=== PATIENT | female | born 1995 | race Caucasian/White ===

== ENCOUNTER 2017-02-04 16:46 | Inpatient (IN) | payer OTHER ==
[~2017-02-04] VITALS: Ht 170.2 cm; Wt 104.8 kg
[2017-02-04] MEDS ORDERED: fentaNYL-PF 50 mCg/mL 2 mL Inj IVPUSH PRN (16:55)
[2017-02-04] MEDS ORDERED: Oxytocin 30 Units/500 mL LR 30 UNITS in IV Premix 1 EACH IV PRN (16:55)
[2017-02-04] MEDS ORDERED: Hemorrhage Kit, Post Partum XX ONE (16:55)
[2017-02-04] MEDS ORDERED: Lactated Ringer's 1,000 ML IV PRN (16:55)
[2017-02-04] MEDS ORDERED: Oxytocin 10 Unit/mL Inj IM PRN (16:55)
[2017-02-04] MEDS ORDERED: Sodium Chloride LOK Flush 10 mL Syringe IVFLUSH PRN (16:55)
[2017-02-04] MEDS ORDERED: Methylergonovine 0.2 mg/mL Inj IM PRN (16:55)
[2017-02-04] MEDS ORDERED: Ondansetron 2 mg/mL 2 mL Inj IVPUSH PRN ×2 (16:55→17:50)
[2017-02-04] MEDS ORDERED: Carboprost 250 mCg/mL Inj IM PRN (16:55)
[2017-02-04 17:12] LABS: Mean Corpuscular Hemoglobin 27.4 pg (27.0-35.0)
[2017-02-04] MEDS ORDERED: Lactated Ringer's 500 ML IV ONE (17:47)
--- NOTE | 2017-02-04 17:48 | PCM.HPANE ---
Patient Data Surgeon Admitting Provider:Melecio Abdi MD Attending Provider:Melecio Abdi MD Primary Care Physician:Melecio Abdi MD Other Provider: Reason for Visit Term Labor Check TERM LABOR CHECK Ht/WT & BMI Body Mass Index Allergies Coded Allergies: No Known Allergies (Unverified , 02/04/17) Past Anesthesia History Anesthesia History: Denies:: Abnormal Airway, Difficult Intubation Diabetes History Hx Diabetes?: No Medications Hypertension Medication: No Home Meds Incl Beta Javon: No History History of ENT Problems?: No HEENT History: Denies:: Abnormal Airway Cataracts Difficult Intubation Dysphagia Glaucoma Hearing Problem Sinus Problem TMJ Denture Type: None Teeth Condition: Within Normal Limits Hx of Heart Problems?: No Cardiovascular History: Denies:: AICD Abdominal Aortic Aneurism Atrial Fibrillation Cardiac Surgery Chest Pain Congestive Heart Failure Coronary Artery Disease Edema Heart Murmur Hypertension Irregular Heartbeat Pacemaker Peripheral Vascular Rheumatic Fever Thrombophlebitis Valvular Heart Disease Hx of Respiratory Problem?: No Respiratory History: Denies:: Asthma COPD Chest Surgery Cough Dyspnea Emphysema Hemoptysis Oxygen Administration Pneumonia Pulmonary Embolism Tuberculosis Use of C-PAP Machine Use of Inhalers / NEBS Hx Neurologic Problems?: No Neurological History: Denies:: Alzheimer's Disease CVA Dementia Dizziness Headaches Multiple Sclerosis Parkinson's Disease Peripheral Neuropathy Seizures TIA Hx of GI Problems?: No Gastrointestinal History: Denies:: Cirrhosis Diverticulitis Gall Bladder Disease Gastroesphageal Reflux Gastrointestinal Bleeding Heartburn Hepatitis Hiatal Hernia Liver Disease Rectal Bleeding Hx of Problems?: No HX of Peritoneal Dialysis: No Female Hx: Positive for:: Currently Hx Musculoskeletal Problems?: No Hx of Psycho/Social Problems?: No Hx Surgeries?: No Hx Any Other Health Problems?: No Hx Diabetes: No Hx Alcohol Use: NoHx Substance Use: No Smoking Status: Never Smoker Have You Smoked inLast 12 mo: No Stop/Bang Treated for Sleep Apnea?: No Do You Have a CPAP Machine?: No Risk Assessment Category Category 1A: Patient has history of documented sleep apnea, and HAS NOT received any narcotic, sedative or anesthesia administration during this stay. Category 1B: Patient has history of documented sleep apnea, and HAS received any narcotic , sedative or anesthesia administration during this stay Category 2: Patient has SUSPECTED Obstructive Sleep Apnea, and HAS received any narcotic , sedative or anesthesia administration during this stay. Category 3: Patient has SUSPECTED Obstructive Sleep Apnea and HAS NOT received narcotic, sedative or anesthesia administration during this stay. Category 4: Outpatient in Procedural Areas with known sleep apnea or who screen positive for High Risk via the STOP/BANG questionnaire. Exam Exam General Appearance: Mild Distress HEENT/AIRWAY: MP 2 Lungs: Clear to Auscultation, Normal Air Movement Heart: Exam Unremarkable, Regular Rate/Rhythm, No Murmurs/Rubs/Gallops Meds/Labs/Diagnostics Labs Test 02/04/17 17:03 White Blood Count 11.8th/mm3 (3.8-10.1) Red Blood Count 4.53mil/mm3 (3.90-5.20) Hemoglobin 12.4g/dL (12.0-15.6) Hematocrit 37.6% (35.0-46.0) Mean Corpuscular Volume 83.0fL (81-100) Mean Corpuscular Hemoglobin 27.4pg (27.0-35.0) Mean Corpuscular Hemoglobin Concent 33.0% (32.0-37.0) Red Cell Distribution Width 14.7% (12.3-15.4) Platelet Count 194bil/L (150-400) Plan Impression Patient chart reviewed, patient interviewed and anesthestic plan with risks, benefits, and alternatives discussed, and informed consent obtained. NPO per Anesth. Guidelines: Yes ASA Physical Status: ASA1 Normal Healthy Anesthetic Plan: Epidural Bene/Risks/Altern/Consents: Yes HP Complete Prior to Induction: Yes Florencio Alan MD Feb 04, 2017 17:48
[2017-02-04] MEDS ORDERED: Atropine 1 mg/10 mL (Code) Syringe IVPUSH PRN (17:50)
[2017-02-04] MEDS ORDERED: EPHEDrine Sulfate 50 mg/mL Inj IVPUSH PRN (17:50)
[2017-02-04] MEDS: Lactated Ringer's 1,000 ML IV SCH (20:43)
[2017-02-05] MEDS: fentaNYL 2 mCg/mL-Bupiv 0.125% 100 ML EPIDURAL SCH ×2 (00:23→05:31)
[2017-02-05] MEDS ORDERED: Lidocaine 2% 5 mL Urojet Topical Jelly Syringe ONE (02:58)
[2017-02-05] MEDS ORDERED: Lidocaine 2% 5 mL Topical Jelly TOPICAL ONE (03:20)
[2017-02-05] MEDS: Lactated Ringer's 1,000 ML IV SCH ×5 (05:32→23:53)
--- NOTE | 2017-02-05 05:58 | HP ---
[address] [address] HISTORY AND PHYSICAL PATIENT: SHMUEL JACOBO : 1995 MR#: [id number] ADMIT: 02/04/2017 JOB ID: [id number] CHIEF COMPLAINT: Contractions. HISTORY OF PRESENT ILLNESS: This is a 21-year-old obstetrical patient of mine at 41 and 3/7 weeks estimated gestational age who presents complaining of increasing frequency and intensity of contractions over the last 12 hours or so. In the last 2 hours she has been having them about every 3 minutes or so and with increasing intensity. She has been noting that the baby has been moving every day. She denies any significant vaginal discharge. She saw me in clinic early this afternoon and at that time, she was starting to have contractions pretty regularly but at that point, were only about every 5 minutes. Her cervix at that time was about to 2.5 cm, 80% effaced and -3 station. The rest of her exam was unremarkable, and she was given labor precautions. It appeared that she was going into labor, so she was told to have a low threshold for going to the Center which she did and came to the Center a couple of hours later and was found to be 3-4 cm, nearly 100% effaced, still in -3 station, vertex position. The baby's heart tracing was reactive and reassuring, and she was madelyn about every 3 minutes. She was admitted for expectant management. PAST OBSTETRICAL HISTORY: She is a primiparous patient with a due date of January 25, 2017, based on a 13 week ultrasound. Her last menstrual period was in early April and giving an approximate due date of January 14. This was changed to the later due date based on the 13 week ultrasound. The obstetrical history was complicated with a late presentation to care at about 28 weeks. She had been seen once or twice with care earlier at another facility and transferred to us. Her course has otherwise been fairly unremarkable. OBSTETRICAL LABORATORY TESTS: Her blood type is A-positive. She is rubella immune. Serology was nonreactive. She was negative for hepatitis B, hepatitis C and HIV, and her antibody screen. Hematocrit at 15 weeks was 37.4 and at 26 weeks was 36.3. Diabetic screening test at 26 weeks was negative. Her initial Pap was reportedly normal, although I never was able to find the actual report. Her chlamydia and gonorrhea tests were negative. Group B strep checked at 36 weeks was also negative. PAST GYNECOLOGIC HISTORY: Entirely unremarkable. PAST MEDICAL HISTORY: Also totally unremarkable. SURGICAL HISTORY: Negative. FAMILY HISTORY: Significant for maternal aunt and maternal grandmother with diabetes, hypertension with her father, some sort of thyroid disease with her mother, and bipolar disease with paternal grandfather. Otherwise, is noncontributory. ALLERGIES: The patient has no known drug allergies. MEDICATIONS: Currently is taking vitamins. Otherwise, is on no regular medications. SOCIAL HISTORY: The patient lives in [facility] with her of the last five years. The patient is a full-time sales associate cashier and denies any alcohol or drug use. She has never smoked. REVIEW OF SYSTEMS: The patient had a Tdap vaccination in October and declined flu vaccinations. The patient denies any chest pain, palpitations, shortness of breath. No unusual headaches. No blurry vision. Has not really had any swelling in her feet at all until today, and her blood pressure in my office was fine. OBJECTIVE: Well-developed, well-nourished woman in no apparent distress except for with contractions. Her vital signs are normal and unremarkable. Lungs are clear to auscultation bilaterally with good air movement. Heart is regular rate and rhythm. No significant murmurs heard. Abdomen is gravid, otherwise unremarkable with normoactive bowel sounds. Extremities show 1+ edema in her feet and ankles bilaterally, and she is kind of puffy around her face. Cervical exam finds her to be 3-4 cm, 100% effaced as mentioned, at -3 station with a reactive heart tracing. Madelyn every three minutes. ASSESSMENT AND PLAN: Intrauterine , at term, in labor. Will admit the patient to the hospital. She was requesting an epidural, and this was placed with excellent results. Will plan on routine expectant management. I discussed routine expectant management issues and procedures. Also, I discussed potential complications in the usual obstetrical procedures to address them but also the possible need for surgical care if a becomes needed. I also discussed the possible need for assistance with vacuum extraction and the associated potential complications. All of her questions were answered, and she expressed understanding of these issues and is willing to proceed.
[2017-02-05] MEDS ORDERED: Mineral Oil-Heavy 30 mL UDC ONE (06:19)
[2017-02-05] MEDS ORDERED: Carboprost 250 mCg/mL Inj IM PRN (07:55)
[2017-02-05] MEDS ORDERED: LANOlin HPA 7 Gm Ointment TOPICAL PRN (07:55)
[2017-02-05] MEDS ORDERED: Methylergonovine 0.2 mg/mL Inj IM PRN (07:55)
[2017-02-05] MEDS ORDERED: Benzocaine (Dermoplast) 20% 60 Gm Spray TOPICAL PRN (07:55)
[2017-02-05] MEDS ORDERED: Oxytocin 10 Unit/mL Inj IM PRN (07:55)
[2017-02-05] MEDS ORDERED: oxyCODONE-Acetamin 5-325 mg Tablet PO PRN (07:55)
[2017-02-05] MEDS ORDERED: Hemorrhage Kit, Post Partum XX ONE (07:55)
[2017-02-05] MEDS ORDERED: Witch Hazel-Glycerin Pads TOPICAL PRN (07:55)
[2017-02-05] MEDS: Ascorbic Acid 500 mg Tablet PO SCH ×2 (08:00→17:30)
[2017-02-05] MEDS: Sodium Chloride LOK Flush 10 mL Syringe IVFLUSH SCH ×2 (08:30→16:30)
--- NOTE | 2017-02-05 09:48 | OP ---
[address] [address] OPERATIVE REPORT PATIENT: SHMUEL JACOBO : 1995 MR#: [id number] ADMIT: 02/04/2017 JOB ID: [id number] DATE OF SURGERY: 02/05/2017 SURGEON: Melecio Abdi MD. PREOPERATIVE DIAGNOSIS(ES): at Term POSTOPERATIVE DIAGNOSIS(ES): Spontaneous Vaginal Delivery DELIVERY NOTE: The patient had a spontaneous vaginal delivery as described below. DELIVERY DATE: 02/05/2017. Please see my admission history and physical for details of her admitting circumstances. Her labor progressed slowly overnight with excellent anesthesia with an epidural. heart tracing remained reactive throughout this time. Although we had a hard time monitoring the baby at times and so scalp electrode was placed as well as an internal pressure monitor at or about two in the morning. She was found eventually to be entirely dilated and effaced at 0411 this morning and began pushing shortly thereafter. She pushed for about half an hour and then this was not working very well and needed to rest and so she was allowed to labor down for about an hour and then began pushing again. The baby was in occiput anterior position. She delivered the baby's head. There was a nuchal cord that was manually reduced and then the delivery of the baby was completed at 0658. The baby was placed on mom's tummy, approximately 30 seconds was waited and then the cord was clamped and cut. The baby was taken to the warmer by the nurses and attended to. The main reason that the baby was removed from mom's tummy as she did not tolerate having the baby on top of her at that time, so the cord was clamped and cut a little prematurely and then taken to the warmer where the nurses tended to the baby. Placenta delivered spontaneously and intact at 0707. There was a second-degree perineal laceration that was repaired with 3-0 Vicryl in the usual manner without difficulty. There were no obvious cervical lacerations noted. There is no other significant perineal injury. Estimated blood loss 350 cc. There were no other complications. The baby was a baby boy with Apgars 7 and 9. Weight of 9 pounds 13 ounces (4467 g). Routine orders will be placed. [facility]
--- NOTE | 2017-02-05 10:59 | PCM.ANEP1 ---
Post Anesthesia PACU Phase 1 Assessment Anesthetic Administered: Epidural Level of Alertness: Awake, talking FERNANDEZ's with Equal Strength: Yes Pain: No Nausea or Vomiting: No CV Function & Hydration Stable: Yes Airway Device: Oxygen Delivery: Room Air Lungs: Clear to Auscultation, Normal Air Movement Dermatome Level: Full Sensation PACU Phase 2 Assessment Complications: No Follow up Care: N/A Patient Instructions Provided: N/A Joaquin Story MD Feb 05, 2017 10:59
[2017-02-06] MEDS: Sodium Chloride LOK Flush 10 mL Syringe IVFLUSH SCH (00:30)
[2017-02-06 07:34] LABS: Mean Corpuscular Hemoglobin 26.6 pg (27.0-35.0); Mean Corpuscular Volume 83.9 fL (81-100)
[2017-02-06] MEDS: Ascorbic Acid 500 mg Tablet PO SCH (09:06)
--- NOTE | 2017-02-06 13:35 | PCM.DIOB ---
Obstetrical Disch Instruction Date of Service: Feb 06, 2017 Dates of Hospitalization Date of Hospital Admission Feb 04, 2017 at 16:53 Providers Admitting Physician: Melecio Abdi MD Primary Care Physician: Melecio Abdi MD Attending Physician: Melecio Abdi MD Discharge Diagnosis Problems: (1) Term delivered Status: Acute ICD Code: O80 (2) Spontaneous vaginal delivery Status: Acute ICD Code: O80 (3) Anemia Qualifiers: Other causes of anemia: other cause, not classified Plan: d/c home on iron supplements Status: Acute ICD Code: D64.9 Diet Discharge Diet: No restrictions Activity Discharge Activity-General: Pelvic Rest for 6 weeks, Try not to overdue, Be up and about, Balance rest and activity Dressing and Incisional Care Hygiene: May shower Follow Up Plan Follow Up Plan f/u with me in six weeks and as needed Follow-up Provider (F9): Melecio Abdi MD Follow-up appointment: Weeks (six) Melecio Abdi MD Feb 06, 2017 13:35
[2017-02-06 13:58] VITALS: BP 112/58; PULSE 69; RESP 18
--- NOTE | 2017-02-06 17:05 | DIS ---
[address] [address] DISCHARGE SUMMARY PATIENT: SHMUEL JACOBO : 1995 MR#: [id number] ADMIT: 02/04/2017 JOB ID: [id number] DIS: 02/06/2017 DISCHARGE DIAGNOSES: 1. Status post spontaneous vaginal delivery at term. 2. Anemia. HISTORY AND PHYSICAL: Please see my admission H and P for details. CONSULTATIONS: None. PROCEDURES: The patient had a spontaneous vaginal delivery on February 05; please see my delivery note for details. HOSPITAL COURSE: The patient was admitted in active labor at term and provided with routine obstetrical care. She asked for an epidural and this was placed with excellent results. Her labor progressed slowly overnight and eventually had a spontaneous vaginal delivery of a baby boy without significant problems. She did bleed more than usual in the immediate antepartum time period while she was pushing and immediately after delivery. Hematocrit was obtained , and her hematocrit dropped down to 25.5. Her lochia improved throughout the subsequent 24 hours, and she is doing fine now with bleeding less than a period at this time. She is rather tired which certainly can be because of the ordeal as she has been through, although it is undoubtedly also related to her anemia as well. Her vital signs are normal and stable, and she has no acute complaints at all and is expressing a desire to be discharged home. She reports decreasing lochia, no significant perineal discomfort and is breast-feeding without significant problems. DISCHARGE EXAMINATION: Finds her lungs to be clear to auscultation bilaterally with good air movement. Heart is regular rate and rhythm. No significant murmurs heard. Abdomen is soft. No significant tenderness noted and the uterus is firm and below the umbilicus. Extremities show no significant edema and normal deep tendon reflexes. ASSESSMENT: 1. Status post spontaneous vaginal delivery. 2. Anemia, . PLAN: Plan on discharging the patient home with instructions just to take iron supplements 1-2 per day as well as take stool softener to prevent constipation. She was instructed to use ibuprofen as needed for pain management and said that she did not need anything stronger than ibuprofen. FOLLOWUP: Told to follow up with me in six weeks, otherwise as needed although, of course, I will be seeing her tomorrow when she brings the baby in to see me.
== END 2017-02-06 15:50 | disposition home or self-care (01) | DRG 775 ==
LOC: FBCO 16:46 → FBC 16:53
PROVIDERS: ADMIT Family Medicine; ATTEND Family Medicine
PROC: 10E0XZZ Delivery of Products of Conception, External Approach (ICD-10-PCS; principal; 2017-02-05)
PROC: 0KQM0ZZ Repair Perineum Muscle, Open Approach (ICD-10-PCS; 2017-02-05)
PROC: 10H07YZ Insertion of Other Device into Products of Conception, Via Natural or Artificial Opening (ICD-10-PCS; 2017-02-05)
DX: O70.1 Second degree perineal laceration during delivery (principal); Z37.0 Single live birth; O69.81X0 Labor and delivery complicated by cord around neck, without compression, not applicable or unspecified; Z3A.41 41 weeks gestation of pregnancy